=== PATIENT | male | born 1930 | race Caucasian/White ===

== ENCOUNTER 2016-12-09 05:52 | Inpatient (IN) | payer MEDICARE ==
[~2016-12-09] VITALS: Ht 177.8 cm; Wt 65.7 kg
[2016-12-09] VITALS (7 sets, daily range): BP systolic 160–178; BP diastolic 77–96; PULSE 60–69; RESP 14–20; O2SAT 96–98
[~2016-12-09 05:52] MED LIST: AMLO5TAB2 PO; ASPI-973 PO; DOXY100T2 PO; ROSU5TAB PO
--- NOTE | 2016-12-09 07:16 | ED.REPORT ---
HPI-Trauma Minor / Fall Date of Service Dec 09, 2016 ED Provider: Dr. Mahamed Watters MD An 85 year old male with a history of daily alcohol use, VT, A-fib, Broca's aphasia and CVA presents to the ED via EMS following a GLF that occurred just prior to arrival. states that he began to experience worsening weakness at 0100 this morning. Last known normal was yesterday morning. He states that his "legs did not work" and he fell over while attempting to use the bathroom. Patient reports feeling weak prior to the incident. He denies any blurry vision , slurred speech, extremity weakness, dysphagia, back pain, neck pain, head injury, vomiting or LOC. Patient was able to ambulate normally last night and believe that he is more unsteady than his typical baseline upon initial examination. He denies any EtOH use this morning and his last drink was last night. He typically takes 1 aspirin per day but did not take one this morning. Pt is a difficult historian. Nursing Notes Stated Complaint: GROUND LEVEL FALL Chief Complaint: General Complaint Nursing Notes Reviewed: Yes Allergies: Coded Allergies: Opioids - Morphine Analogues (Unverified Allergy, Unknown, 12/09/16) Uncoded Allergies: Narcotics (Allergy, Intermediate, 12/18/15) Falls asleep Scheduled Amlodipine (Amlodipine) 5 Mg Tablet 5 MG PO DAILY Aspirin Chew (Aspirin Chew) 81 Mg Chew 81 MG PO DAILY Rosuvastatin Calcium (Crestor) 5 Mg Tablet 5 MG PO DAILY General Time Seen by MD: 07:15 Chief Complaint Fall Hx Obtained From: Patient Arrived By: Ambulance Onset Occurred: Just prior to arrival Symptom Duration: Since onset Caused by: Accidental Associated with: Denies: Headache, Loss of consciousness, Neck pain, Vomiting Pertinent Negative: Pt denies other symptoms Recent Healthcare: No recent doctor visit, No recent hospitalization Past Medical History Past Medical History History of A-fib VT Broca's aphasia Tremor Reports: Hypertension, Stroke (CVA) Past Surgical History Reports: Appendectomy Smoking History Former Smoker Social History Alcohol Use: 1-3 per day Other Social History: Good social support, , Local resident Ambulatory Status Cane Review of Systems Denies facial asymmetry Constitutional: Reports: Weakness - generalized Eyes: Denies: Blurred bilateral Musculoskeletal: Denies: Back pain, Neck pain Neurologic: Reports: Dizziness, Headache, Problem walking, Denies: Change LOC, Focal weakness, Slurred speech Complete sys rev & neg: except as marked. GI: Denies: Nausea, Vomiting Physical Exam Initial Vital Signs Vital Signs (First) Date Time Temp Pulse Resp B/P Pulse Ox O2 Delivery O2 Flow Rate FiO2 12/09/16 06:13 36.1 66 20 167/89 97 Room Air Initial VS: Reviewed Extremities: Vascular intact, Neuro intact, No swelling, No tenderness Skin: Warm, Dry, No cyanosis Psychiatric: Mood/affect normal, Behavior normal, Normal thought content General/Constitutional: Awake, Alert, No acute distress Neck: Atraumatic, Supple Head / Eyes: Atraumatic, Normocephalic Respiratory / Chest: Atraumatic, Breath sounds NL, Breath sounds = bilat, No respiratory distress Cardiovascular: Heart rate NL, Regular rhythm, Heart sounds NL, No murmurs Abdomen: Atraumatic, Soft, Non-tender Neurologic: Oriented X3, Speech NL, No sensory deficits Focal Weakness: Positive: Lower extremity L, Pronator drift L (Left lower extremity pronator drift ) Cerebellar Dysfunction: Positive: Heel-garcia abnl (LLE dysmetria ), Negative: Finger-nose abnl (Dysmetria ) Interpretation & Diagnostics Lab Results Interpretation Result Diagram: 12/09/16 0915 12/09/16 0915 Test 12/09/16 08:30 12/09/16 09:15 12/09/16 09:57 Urine Color Straw (YELLOW) Urine Appearance Clear (CLEAR,HAZY) Urine pH 6.5 (5.0-8.0) Urine Specific [place] 1.008 (1.003-1.035) Urine Protein Negativemg/dL (NEG,TRACE) Urine Glucose (UA) Negativemg/dL (NEGATIVE) Urine Ketones Negativemg/dL (NEGATIVE) Urine Occult Blood Trace (NEGATIVE) Urine Nitrite Negative (NEGATIVE) Urine Bilirubin Negative (NEGATIVE) Urine Urobilinogen Normalmg/dL (NORMAL) Urine Leukocyte Esterase Negative (NEGATIVE) Urine RBC 0-2/hpf (0-2) Urine WBC 0-5/hpf (0-5) Urine Epithelial Cells Few/hpf (NONE-MOD) Urine Crystals None seen (NONE SEEN) Urine Bacteria None/hpf (NONE-FEW) Urine Hyaline Casts None/lpf (NONE) Urine Granular Casts None seen (NONE SEEN) Urine Waxy Casts None seen (NONE SEEN) Urine Red Blood Cell Casts None seen (NONE SEEN) Urine White Blood Cell Casts None seen (NONE SEEN) Urine Mucus None seen (None Seen) Urine Trichomonas None seen (NONE SEEN) Urine Yeast None (NONE SEEN) Urinalysis Comment None Urine Culture Reflexed Not indicated White Blood Count 6.4th/mm3 (3.8-10.1) Red Blood Count 4.18mil/mm3 (4.40-5.80) Hemoglobin 12.9g/dL (13.8-17.2) Hematocrit 38.6% (41.0-50.0) Mean Corpuscular Volume 92.3fL (81-100) Mean Corpuscular Hemoglobin 30.9pg (27.0-35.0) Mean Corpuscular Hemoglobin Concent 33.4% (32.0-37.0) Red Cell Distribution Width 12.5% (12.3-15.4) Platelet Count 176bil/L (150-400) Neutrophils (%) (Auto) 59.8% (40-74) Lymphocytes (%) (Auto) 28.3% (14-46) Monocytes (%) (Auto) 10.9% (4-12) Eosinophils (%) (Auto) 0.5% (0-5) Basophils (%) (Auto) 0.3% (0-3) Prothrombin Time 10.6sec (8.1-12.5) Prothromb Time International Ratio 0.99ratio Sodium Level 141mEq/L (134-144) Potassium Level 4.1mEq/L (3.5-5.2) Chloride Level 105mEq/L (97-108) Carbon Dioxide Level 21mmol/L (18-29) Blood Urea Nitrogen 17mg/dL (8-27) Creatinine 0.86mg/dL (0.76-1.27) Estimat Glomerular Filtration Rate 90mL/min (>59) Glucose Level 133mg/dL (60-99) Calcium Level 9.3mg/dL (8.5-10.1) Total Bilirubin 0.3mg/dL (0.0-1.2) Aspartate Amino Transf (AST/SGOT) 18U/L (0-50) Alanine Aminotransferase (ALT/SGPT) 12U/L (0-44) Alkaline Phosphatase 75U/L (25-160) Troponin T 0.010ug/L (0.0-0.011) Total Protein 7.0g/dL (6.4-8.4) Albumin 3.9g/dL (3.4-5.0) Alcohols < 10mg/dL (0-10) Hold Iraheta Top Tube Received (Received) ECG Interpretation ECG Interpretation: A-fib Rate [address] changes Time: 08:28 Interpreted by: ED physician CT Head Interpretation IMPRESSION: 1. No acute intracranial abnormalities. 2. Old lacunar infarct involving the anterior limb of the left internal capsule. 3. Cerebral volume loss and chronic microvascular ischemic changes. 4.. Complete opacification of the left maxillary sinus and possible mass occupying the left maxillary sinus and nasal passage. Recommend ENT consultation. Dictated by: Zachary Ferrer M.D. on 12/09/2016 at 8:37 Study: Head CT no contrast Interpretation / Wet Read by: Interpret - Radiologist Re-Eval/Medical Decision Med Decision/Clinical Course 86-year-old male history of CVA, VT on daily aspirin presenting with left-sided weakness that O1 100 this morning. Last known normal was yesterday. Well out of TPA window. He has left upper 70 and left lower extremity dysmetria. He has left-sided neglect. Per this is new. Patient will be admitted for stroke workup. Aspirin was given. Re-Evaluation/Progress #1: Time of Eval: 10:53 Re-Evaluation/Progress Note: He is informed of his results that indicate stroke. Patient is given the recommendation to admit for stroke workup and he declines. The patient is informed of the risks of a stroke up to and still insists on discharge. He agrees to meet with PT and the HANDLE ATTACHER prior to discahrge AMA. Patient has at home PT currently. Re-Evaluation/Progress #2: Time of Eval: 12:16 Patient Status: Condition improved Re-Evaluation/Progress Note: Spoke with the pt's who convinced the pt to accept admission to the hospital. Patient understands and agrees with the plan to admit. Consultation : Referral / Consult Name: Juan Antonio Green MD Consulted With: Hospitalist Call Returned at: 12:50 Seo Executive: Will see patient, Agrees with eval, Agrees with plan, Accepts admit Counseled Regarding: Diagnosis, Lab results, Need for follow-up, When/why to return to ED Discharge & Departure Impression: Primary Impression: CVA (cerebral vascular accident) CVA mechanism: unspecified Qualified Code: I63.9 - Cerebral infarction, unspecified Disposition: ADMITTED TO HOSPITAL Discharge Condition All VS Reviewed: Yes Condition: Stable Referrals: Husam Guajardo PA-C (PCP) [facility] Attestation Portions of this note were transcribed by Jasen Figueroa. I, Dr. Watters personally performed the history, physical exam and medical decision-making; I reviewed and confirmed the accuracy of the information in the transcribed note. Signed by: Randall Hunt, 12/09/16 6713. copies to: Husam Guajardo PA-C, Ben M MD Dec 09, 2016 07:15 JASEN FIGUEROA Dec 09, 2016 07:26
[2016-12-09] MEDS ORDERED: ASPI81TA3 PO (07:58)
--- NOTE | 2016-12-09 08:47 | DRSVH ---
PROCEDURE: CT BRAIN WITHOUT CONTRAST ([id number]) INDICATIONS: LLE weakness r/o cva TECHNIQUE: Noncontrast 4.5 mm thick angled axial sections acquired from the foramen magnum to the vertex, with c oronal reformats. COMPARISON: [facility], CT, CT BRAIN WO CON, 12/20/2015, 11:16. FINDINGS: Image quality: Excellent. CSF spaces: Basal cisterns are patent. No extra-axial fluid collections. The ventricles are symmet kylie in size and shape. Brain: There is old lacunar infarct in the anterior limb of the left internal capsule. No intracrani al bleeds or masses. There is mild cerebral volume loss for age, with resultant ventricular and sulc al prominence. There are mild periventricular and deep white matter chronic small vessel ischemic ch anges. There is intracranial internal carotid artery atherosclerosis. Skull and face: Calvarium and visualized facial bones appear intact, without suspicious lesions. Sinuses: Complete opacification of the right maxillary sinus. There is probable mass involving the le ft maxillary sinus and left nasal passage. Overall, the appearance is unchanged from 12/20/2059. The m astoids are clear. IMPRESSION: 1. No acute intracranial abnormalities. 2. Old lacunar infarct involving the anterior limb of the left internal capsule. 3. Cerebral volume loss and chronic microvascular ischemic changes. 4.. Complete opacification of the left maxillary sinus and possible mass occupying the left maxillary sinus and nasal passage. Recommend ENT consultation. Dictated by: Zachary Ferrer M.D. on 12/09/2016 at 8:37 Approved by: Zachary Ferrer M.D. on 12/09/2016 at 8:45
[2016-12-09 08:52] LABS: APPEARANCE,URINE CLEAR (CLEAR,HAZY); COLOR,URINE STRAW (YELLOW); PH,URINE 6.5 (5.0-8.0)
[2016-12-09 08:53] LABS: OCCULT BLOOD,URINE TRACE (NEGATIVE); UROBILINOGEN,URINE NORMAL (NORMAL)
[2016-12-09 09:49] LABS: BASOPHILS % (AUTO) 0.3 % (0-3); EOSINOPHILS % (AUTO) 0.5 % (0-5); MONOCYTES % (AUTO) 10.9 % (4-12); Mean Corpuscular Hemoglobin 30.9 pg (27.0-35.0); Mean Corpuscular Volume 92.3 fL (81-100); NEUTROPHILS % (AUTO) 59.8 % (40-74); Platelet Count 176 bil/L (150-400)
[2016-12-09 10:05] LABS: INR 0.99 ratio
--- NOTE | 2016-12-09 12:47 | NUR ---
Evaluation completed. Please go to "Notes" then click on "Assessments and Notes" (bottom left corner of screen). Then select appropriate discipline tab on top of screen.
[2016-12-09] MEDS ORDERED: Ondansetron 2 mg/mL 2 mL Inj IVPUSH PRN ×2 (12:55→14:00)
[2016-12-09] MEDS ORDERED: Alum-Mag Hydrox-Simeth 30 mL Suspension PO PRN ×2 (12:55→14:00)
--- NOTE | 2016-12-09 13:19 | NUR ---
Evaluation completed. Please go to "Notes" then click on "Assessments and Notes" (bottom left corner of screen). Then select appropriate discipline tab on top of screen.
[2016-12-09] MEDS ORDERED: Polyethylene Glycol (PEG) 17 Gm Powder PO PRN (14:00)
--- NOTE | 2016-12-09 14:25 | NUR ---
Admit [facility] from ED to room 3002 A&O pt arrived to unit at 1402 via stretcher. VSS. Denies pain. IV patent. Tele on, box 53. CASTRO and LLE side weakness noted. No facial/tongue asymmetry appreciated. Pt oriented to room and facility. Denies having questions. Admit complete. States to live at home with on [address]. Is retired from [employer]. Bed in low position, upper rails up, personal alarm set, will continue to monitor.
[2016-12-09] MEDS: 0.9% Sodium Chloride 1,000 ML IV SCH (14:34)
--- NOTE | 2016-12-09 16:48 | DRSVH ---
PROCEDURE: MRI STROKE PROTOCOL ([id number]) Pre- and post-contrast brain MRI, non-contrast brain MR angiogram, pre- and postcontrast neck MR ome ogram INDICATIONS: LEFT SIDE WEAKNESS,CONFUSION TECHNIQUE: Brain: Noncontrast axial T1 spin echo, axial T2 fast spin echo, sagittal and axial FLAIR, coronal T2 fast spin echo, axial gradient echo, axial diffusion and ADC through the brain. After the administr ation of contrast, axial 3D VIBE of the cranial vasculature and brain. Brain MRA: Non-contrast 3-D time of flight MR angiogram, with multiple zedujmw-rpwrvsixr-drgtjmybvk (MIP) reformats performed. Neck MRA: Axial and sagittal TruFISP through the neck. Coronal dynamic MR angiogram during administ ration of contrast in the arterial and venous phases, with 3-dimenstional klgmavq-[id number]-usmtcjcgw n (MIP) reformats constructed from subtraction images. COMPARISON: [facility], CT, CT BRAIN WO CON, 12/20/2015, 11:16. [facility], CT, BRAIN W/O CONTRAST, 11/27/2008, 17:46. [facility], CT, CT BRAIN WO CON, 12/09/2016, 8: 17. FINDINGS: Image quality: Partially degraded by motion artifact. BRAIN: CSF spaces: Ventricles are normal in size and shape. Basal cisterns are patent. No extra-axial flu id collections. Brain: There is diffuse bilateral subdural low T1 and high FLAIR signal intensity overlying the front al and parietal lobes predominantly, measuring roughly 8 mm in thickness overlying the right frontal lobe, and 6 mm in thickness overlying the left frontal lobe. These regions demonstrate avid post cont rast-enhancement following intravenous contrast administration. Luque-white matter interface is normal . Diffusion weighted imaging demonstrates a 46 mm diameter region of elevated signal intensity within the right medial temporal lobe. There are a few small adjacent regions of elevated diffusion signal within the right posterior basal ganglia and right temporal-occipital lobe junction. These regions de monstrate moderate FLAIR signal elevation, and are consistent with late subacute infarcts. Brainstem appears normal. Normal intravascular flow voids are present. Skull and face: Calvarial marrow signal is normal. Orbits appear normal. 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 BRAIN MR ANGIOGRAM: Anterior circulation: Intracranial internal carotid arteries are normal in size and enhancement. Th e flow within the paired anterior cerebral arteries is normal and symmetric. The flow within the mid dle cerebral arteries is normal and symmetric. The anterior communicating artery is seen. No stenos es, occlusions, or aneurysms. Posterior circulation: The visualized portions of the vertebral arteries demonstrate normal caliber, and join to form a normal appearing basilar artery. The flow within the posterior cerebral arteries is normal and symmetric. No stenoses, occlusions, or aneurysms. NECK MR ANGIOGRAM: Carotids: Great vessels demonstrate a conventional anatomy as they arise from the aortic arch. The origins of the common carotid arteries appear patent. The calibers and courses of both common caroti d arteries are normal. The bifurcation regions appear normal bilaterally. The internal carotid noni kim demonstrate normal course and caliber. Posterior circulation: Left vertebral artery origin not well-seen. Mild stenosis of the right vertebr al artery origin. More superior portions of both vertebral arteries demonstrate normal course and hang iber, and join to form a normal appearing basilar artery. Miscellaneous: Subclavian arteries appear patent. Pre-contrast images through the neck show no soft tissue abnormalities. IMPRESSION: BRAIN MRI: 1. Subacute infarcts within the right temporal lobe and basal ganglia. 2. Bilateral subdural abnormalities as described above, likely representing chronic hematomas. Howeve r, given the avid post contrast-enhancement, intracranial hypotension or underlying meningeal carcino matosis may also be present. 3. 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 BRAIN MR ANGIOGRAM: Negative cerebral MR angiography. NECK MR ANGIOGRAM: 1. No internal carotid artery stenosis bilaterally. 2. Patent right vertebral artery. Suboptimally visualized left vertebral artery origin, which is othe rwise patent. The estimate of stenosis included in the report of the imaging study was calculated using the NASCET method Findings were discussed with Dr. Green on 12.09.16 at 1640 hrs. PST. Dictated by: Deonte Jordan M.D. on 12/09/2016 at 15:31 Approved by: Deonte Jordan M.D. on 12/09/2016 at 15:46
--- NOTE | 2016-12-09 17:42 | PCM.HPMED ---
Subjective Date of Service Dec 09, 2016 Primary Provider: Admitting Physician: Juan Antonio Green MD Primary Care Physician: Husam Guajardo PA-C Attending Physician: Juan Antonio Green MD Admit Status: From the Emergency Department, Full Admit, Admit to Green Team Chief Complaint: GLF/1 day Worsened left sided weakness/1 day History of Present Illness: 86-year-old gentleman with past medical history of CVA with residual left-sided weakness, history of Broca's aphasia, history of atrial fibrillation not on AC, history of nasal polyp status post resection was brought in due to acute worsening of left-sided weakness and ground of 1 day. Patient states this afternoon at 1pm he tried to get out of bed but his left leg was much weaker than baseline and he fell to ground. He describes it as his leg gave away and could not lift it. did not hit his head. He also feels his left arm is weaker from baseline. Takes aspirin and statin. At baseline reportedly subtle left-sided weakness and able to ambulate independently ED course: in Afib rate controlled,BP 167/89, exam remarkable for mild left- sided weakness, total left aidan-neglect, left upper extremity dysmetria and dysdiadochokinesia on finger to nose ,power 4+/5 on LUE and LLE,5/5 on right tpa not given as out of window with last known well last night, CT brain :Old lacunar infarct involving the anterior limb of the left internal capsule. Complete opacification of the left maxillary sinus and possible mass occupying the left maxillary sinus and nasal passage admission requested for CVA Review of Systems: A comprehensive review of systems performed, pertinent positives and negatives included in history of present illness Allergies Coded Allergies: Opioids - Morphine Analogues (Unverified Allergy, Unknown, 12/09/16) Uncoded Allergies: Narcotics (Allergy, Intermediate, 12/18/15) Falls asleep Home Medications Amlodipine (Amlodipine) 5 Mg Tablet 5 MG PO DAILY Aspirin Chew (Aspirin Chew) 81 Mg Chew 81 MG PO DAILY Rosuvastatin Calcium (Crestor) 5 Mg Tablet 5 MG PO DAILY PMH History of A-fib not on AC reported history DE Broca's aphasia Tremor Reports: Hypertension, Stroke (CVA) nasal polyp Surgical History Appendectomy Nasal polypectomy per prior admission notes Family History Reviewed and unremarkable Social History Hx Alcohol Use: Yes (DAILY ) Alcoholic Drinks Per Day: glass of wine Hx Substance Use: No Hx Tobacco Use: Yes (60+ pack years) Smoking Status: Former Smoker Exam Vital Signs Vital Sign - Last Date Time Temp Pulse Resp B/P Pulse Ox O2 Delivery O2 Flow Rate FiO2 12/09/16 14:22 62 12/09/16 14:15 36.8 16 176/89 98 Room Air Exam Gen. patient is lying comfortably in hospital bed HEENT: Head is normocephalic atraumatic, Pupils equal and reactive, extraocular movements intact, Lungs clear to auscultation bilaterally Heart regular rate and rhythm without murmurs gallops or rubs Abdomen soft nontender without hepatosplenomegaly Extremities pulses are present dorsalis pedis posterior tibialis and radial. tSkin is warm and dry there are no rashes, Psych alert and oriented to person place and time Neuro left-sided weakness, total left aidan-neglect, left upper extremity dysmetria and dysdiadochokinesia on finger to nose ,power 4+/5 on LUE and LLE,5/ 5 on right . No sensory deficit Lymph: There is no lymphadenopathy appreciated in the cervical supra infraclavicular regions : no omalley Lab and Diagnostics Result Diagram: 12/09/1615 12/09/16 0915 X-Rays, CTs and MRIs PROCEDURE: CT BRAIN WITHOUT CONTRAST ([id number]) INDICATIONS: LLE weakness r/o cva IMPRESSION: 1. No acute intracranial abnormalities. 2. Old lacunar infarct involving the anterior limb of the left internal capsule. 3. Cerebral volume loss and chronic microvascular ischemic changes. 4.. Complete opacification of the left maxillary sinus and possible mass occupying the left maxillary sinus and nasal passage. Recommend ENT consultation. Dictated by: Zachary Ferrer M.D. on 12/09/2016 at 8:37 PROCEDURE: MRI STROKE PROTOCOL ([id number]) Pre- and post-contrast brain MRI, non-contrast brain MR angiogram, pre- and postcontrast neck MR angiogram INDICATIONS: LEFT SIDE WEAKNESS,CONFUSION TECHNIQUE: Brain: Noncontrast axial T1 spin echo, axial T2 fast spin echo, sagittal and axial FLAIR, coronal T2 fast spin echo, axial gradient echo, axial diffusion and ADC through the brain. After the administration of contrast, axial 3D VIBE of the cranial vasculature and brain. Brain MRA: Non-contrast 3-D time of flight MR angiogram, with multiple maximum- intensity-projection (MIP) reformats performed. Neck MRA: Axial and sagittal TruFISP through the neck. Coronal dynamic MR angiogram during administration of contrast in the arterial and venous phases, with 3-dimenstional rwsavja-fxwimkuzb-etvtmjfene (MIP) reformats constructed from subtraction images. COMPARISON: [facility], CT, CT BRAIN WO CON, 12/20/2015, 11:16. [facility], CT, BRAIN W/O CONTRAST, 11/27/2008, 17:46. [facility], CT, CT BRAIN WO CON, 12/09/2016, 8:17. FINDINGS: Image quality: Partially degraded by motion artifact. BRAIN: CSF spaces: Ventricles are normal in size and shape. Basal cisterns are patent. No extra-axial fluid collections. Brain: There is diffuse bilateral subdural low T1 and high FLAIR signal intensity overlying the frontal and parietal lobes predominantly, measuring roughly 8 mm in thickness overlying the right frontal lobe, and 6 mm in thickness overlying the left frontal lobe. These regions demonstrate avid post contrast-enhancement following intravenous contrast administration. Luque-white matter interface is normal. Diffusion weighted imaging demonstrates a 46 mm diameter region of elevated signal intensity within the right medial temporal lobe. There are a few small adjacent regions of elevated diffusion signal within the right posterior basal ganglia and right temporal-occipital lobe junction. These regions demonstrate moderate FLAIR signal elevation, and are consistent with late subacute infarcts. Brainstem appears normal. Normal intravascular flow voids are present. Skull and face: Calvarial marrow signal is normal. Orbits appear normal. Sinuses: As before, there is a left nasal cavity and left maxillary sinus mass, which demonstrates heterogeneous enhancement following intravenous contrast administration. BRAIN MR ANGIOGRAM: Anterior circulation: Intracranial internal carotid arteries are normal in size and enhancement. The flow within the paired anterior cerebral arteries is normal and symmetric. The flow within the middle cerebral arteries is normal and symmetric. The anterior communicating artery is seen. No stenoses, occlusions, or aneurysms. Posterior circulation: The visualized portions of the vertebral arteries demonstrate normal caliber, and join to form a normal appearing basilar artery. The flow within the posterior cerebral arteries is normal and symmetric. No stenoses, occlusions, or aneurysms. NECK MR ANGIOGRAM: Carotids: Great vessels demonstrate a conventional anatomy as they arise from the aortic arch. The origins of the common carotid arteries appear patent. The calibers and courses of both common carotid arteries are normal. The bifurcation regions appear normal bilaterally. The internal carotid arteries demonstrate normal course and caliber. Posterior circulation: Left vertebral artery origin not well-seen. Mild stenosis of the right vertebral artery origin. More superior portions of both vertebral arteries demonstrate normal course and caliber, and join to form a normal appearing basilar artery. Miscellaneous: Subclavian arteries appear patent. Pre-contrast images through the neck show no soft tissue abnormalities. IMPRESSION: BRAIN MRI: 1. Subacute infarcts within the right temporal lobe and basal ganglia. 2. Bilateral subdural abnormalities as described above, likely representing chronic hematomas. However, given the avid post contrast-enhancement, intracranial hypotension or underlying meningeal carcinomatosis may also be present. 3. 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 BRAIN MR ANGIOGRAM: Negative cerebral MR angiography. NECK MR ANGIOGRAM: 1. No internal carotid artery stenosis bilaterally. 2. Patent right vertebral artery. Suboptimally visualized left vertebral artery origin, which is otherwise patent. The estimate of stenosis included in the report of the imaging study was calculated using the NASCET method Findings were discussed with Dr. Green on 12.09.16 at 1640 hrs. PST. Dictated by: Deonte Jordan M.D. on 12/09/2016 at 15:31 12-lead ECG A. fib rate controlled Assessment & Plan 86-year-old gentleman with past medical history of CVA with residual left-sided weakness, history of Broca's aphasia, history of atrial fibrillation not on AC, history of nasal polyp ? t status post resection was brought in due to acute worsening of left-sided weakness and ground of 1 day. # Acute CVA -Likely embolic given A. fib not on AC and multiple infarct sites -MRI Subacute infarcts within the right temporal lobe and basal ganglia, Bilateral subdural abnormalities likely representing chronic hematomas vs intracranial hypotension vs underlying meningeal carcinomatosis -Patient's symptoms are explained by the stroke MRI findings. Subdural abnormality probably incidental finding and not related to his current symptoms -ASA given in ED, continue aspirin, benefit outweighs the risk. 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 We have to quantify his office and make an appointment before discharge -May consider LP and cytology but biopsy of nasal mass is more accessible # Afib not on AC -rate controlled -AC may be considered once SDH and brain mets ruled out # HTN -Continue home amlodipine Patient admitted under inpatient status with expected length of stay > 2 midnights for severity of present symptoms, complexities of treatment plan and risk for adverse events full code per patient VTE Mechanical Devices: Intermittant Pneumatic CD copies to: Husam Guajardo PA-C, Melaku MD Dec 09, 2016 17:42
--- NOTE | 2016-12-09 18:05 | NUR ---
Ambulation/Hemispatial neglect/Afib pauses Pt up with RN as 1PA using FWW. Pt sat up in chair for dinner. states to be feeling stronger. Is aware of L sided weakness. L side hemispatial neglect noted. Dinner tray needs to be rotated around and when speaking with pt, one must stand to the R side. Pt noted to have couple second Afib pauses on tele-MD notified. Will continue to monitor. Bed in low position, 3 rails up, alarm on, will continue to monitor.
--- NOTE | 2016-12-09 19:27 | NUR ---
CVA teaching CVA teaching provided. Pt denies having questions. States had one last year and is aware of warning signs/symptoms. Pamphlet left with pt.
[2016-12-10] VITALS (9 sets, daily range): BP systolic 160–193; BP diastolic 79–94; PULSE 56–72; RESP 16–18; O2SAT 96–98
[2016-12-10 06:14] LABS: BASOPHILS % (AUTO) 0.3 % (0-3); EOSINOPHILS % (AUTO) 1.6 % (0-5); MONOCYTES % (AUTO) 11.6 % (4-12); Mean Corpuscular Hemoglobin 30.9 pg (27.0-35.0); Mean Corpuscular Volume 92.6 fL (81-100); NEUTROPHILS % (AUTO) 50.4 % (40-74); Platelet Count 180 bil/L (150-400)
[2016-12-10 06:28] LABS: Magnesium 1.9 mg/dL (1.6-2.6)
[2016-12-10] MEDS: 0.9% Sodium Chloride 1,000 ML IV SCH (07:43)
--- NOTE | 2016-12-10 15:19 | PCM.PNMED ---
Subjective Date of Service Dec 10, 2016 Subjective Denies any new issues/complaints Exam Vital Signs Vital Sign - Last Date Time Temp Pulse Resp B/P Pulse Ox O2 Delivery O2 Flow Rate FiO2 12/10/16 13:47 36.6 65 18 164/79 97 Room Air Intake and Output 12/09/16 12/09/16 12/10/16 Cumulative From/Thru 15:00 23:00 07:00 12/09/16 06:13 - 12/10/16 05:51 Intake Total 421 ml 300 ml 721 ml Output Total 600 ml 520 ml 1450 ml 2570 ml Balance -600 ml -99 ml -1150 ml -1849 ml Intake Oral 300 ml 300 ml 600 ml IV Total 121 ml 121 ml Output Urine Total 600 ml 520 ml 1450 ml 2570 ml # Voids 1 1 # Bowel Movements 1 1 General: Alert, Cooperative, No Acute Distress Head: Normal Eyes: PERRLA, EOMI, Scleral Anicteric Nose: Mucous Membr Moist/[place] Mouth: Mucous Membr Moist/[place] Neck: Supple Chest & Lungs: Chest Wall Normal, Clear to auscultation & percussion Cardiovascular: Regular Rate/Rhythm Pulses: NL carotid, radial, femoral, DP, PT Abdomen: Non-tender, Non-distended, Normoactive bowel tones, Soft Extremities: No cyanosis/clubbing/edma bilat Neurological: Cranial Nerves 2-12 Intact (grossly) IVs and Medications Medications Reviewed: Medications were reviewed in detail Lab and Diagnostics Result Diagram: 12/10/16 0510 12/10/16 0510 X-Rays, CTs and MRIs PROCEDURE: CT BRAIN WITHOUT CONTRAST ([id number]) INDICATIONS: LLE weakness r/o cva IMPRESSION: 1. No acute intracranial abnormalities. 2. Old lacunar infarct involving the anterior limb of the left internal capsule. 3. Cerebral volume loss and chronic microvascular ischemic changes. 4.. Complete opacification of the left maxillary sinus and possible mass occupying the left maxillary sinus and nasal passage. Recommend ENT consultation. Dictated by: Zachary Ferrer M.D. on 12/09/2016 at 8:37 PROCEDURE: MRI STROKE PROTOCOL ([id number]) Pre- and post-contrast brain MRI, non-contrast brain MR angiogram, pre- and postcontrast neck MR angiogram INDICATIONS: LEFT SIDE WEAKNESS,CONFUSION TECHNIQUE: Brain: Noncontrast axial T1 spin echo, axial T2 fast spin echo, sagittal and axial FLAIR, coronal T2 fast spin echo, axial gradient echo, axial diffusion and ADC through the brain. After the administration of contrast, axial 3D VIBE of the cranial vasculature and brain. Brain MRA: Non-contrast 3-D time of flight MR angiogram, with multiple maximum- intensity-projection (MIP) reformats performed. Neck MRA: Axial and sagittal TruFISP through the neck. Coronal dynamic MR angiogram during administration of contrast in the arterial and venous phases, with 3-dimenstional qaeovqy-wyoanzkfl-ycoafwikdw (MIP) reformats constructed from subtraction images. COMPARISON: [facility], CT, CT BRAIN WO CON, 12/20/2015, 11:16. [facility], CT, BRAIN W/O CONTRAST, 11/27/2008, 17:46. [facility], CT, CT BRAIN WO CON, 12/09/2016, 8:17. FINDINGS: Image quality: Partially degraded by motion artifact. BRAIN: CSF spaces: Ventricles are normal in size and shape. Basal cisterns are patent. No extra-axial fluid collections. Brain: There is diffuse bilateral subdural low T1 and high FLAIR signal intensity overlying the frontal and parietal lobes predominantly, measuring roughly 8 mm in thickness overlying the right frontal lobe, and 6 mm in thickness overlying the left frontal lobe. These regions demonstrate avid post contrast-enhancement following intravenous contrast administration. Luque-white matter interface is normal. Diffusion weighted imaging demonstrates a 46 mm diameter region of elevated signal intensity within the right medial temporal lobe. There are a few small adjacent regions of elevated diffusion signal within the right posterior basal ganglia and right temporal-occipital lobe junction. These regions demonstrate moderate FLAIR signal elevation, and are consistent with late subacute infarcts. Brainstem appears normal. Normal intravascular flow voids are present. Skull and face: Calvarial marrow signal is normal. Orbits appear normal. Sinuses: As before, there is a left nasal cavity and left maxillary sinus mass, which demonstrates heterogeneous enhancement following intravenous contrast administration. BRAIN MR ANGIOGRAM: Anterior circulation: Intracranial internal carotid arteries are normal in size and enhancement. The flow within the paired anterior cerebral arteries is normal and symmetric. The flow within the middle cerebral arteries is normal and symmetric. The anterior communicating artery is seen. No stenoses, occlusions, or aneurysms. Posterior circulation: The visualized portions of the vertebral arteries demonstrate normal caliber, and join to form a normal appearing basilar artery. The flow within the posterior cerebral arteries is normal and symmetric. No stenoses, occlusions, or aneurysms. NECK MR ANGIOGRAM: Carotids: Great vessels demonstrate a conventional anatomy as they arise from the aortic arch. The origins of the common carotid arteries appear patent. The calibers and courses of both common carotid arteries are normal. The bifurcation regions appear normal bilaterally. The internal carotid arteries demonstrate normal course and caliber. Posterior circulation: Left vertebral artery origin not well-seen. Mild stenosis of the right vertebral artery origin. More superior portions of both vertebral arteries demonstrate normal course and caliber, and join to form a normal appearing basilar artery. Miscellaneous: Subclavian arteries appear patent. Pre-contrast images through the neck show no soft tissue abnormalities. IMPRESSION: BRAIN MRI: 1. Subacute infarcts within the right temporal lobe and basal ganglia. 2. Bilateral subdural abnormalities as described above, likely representing chronic hematomas. However, given the avid post contrast-enhancement, intracranial hypotension or underlying meningeal carcinomatosis may also be present. 3. 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 BRAIN MR ANGIOGRAM: Negative cerebral MR angiography. NECK MR ANGIOGRAM: 1. No internal carotid artery stenosis bilaterally. 2. Patent right vertebral artery. Suboptimally visualized left vertebral artery origin, which is otherwise patent. The estimate of stenosis included in the report of the imaging study was calculated using the NASCET method Findings were discussed with Dr. Green on 12.09.16 at 1640 hrs. PST. Dictated by: Deonte Jordan M.D. on 12/09/2016 at 15:31 12-lead ECG A. fib rate controlled Assessment & Plan 86-year-old gentleman with past medical history of CVA with residual left-sided weakness, history of Broca's aphasia, history of atrial fibrillation not on AC, history of nasal polyp ? t status post resection was brought in due to acute worsening of left-sided weakness # Acute vs subacute ischemia stroke, present on admission -Likely embolic given A. fib not on AC and multiple infarct sites -MRI Subacute infarcts within the right temporal lobe and basal ganglia, Bilateral subdural abnormalities likely representing chronic hematomas vs intracranial hypotension vs underlying meningeal carcinomatosis -Reviewed MRI with [facility]/stroke consult on 12/10/16. Per recommendation will continue with low dose ASA for now and repeat CT brain in AM to ensure hematoma stable. 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
--- NOTE | 2016-12-10 15:57 | NUR ---
Social Work-initial assessment: Data:See initial assessment. Pt is a 86 y/o male who was admitted on 12/09/16 for CVA per H&P. Pt's insurance is [employer] and PCP is LEE Crystal. EMR Reviewed. Pt's readmission score is 0. SW met with pt to discuss discharge planning, SW role explained. Pt is alert and oriented x3. Pt resides at home with his on [place] where he remains independent with ADLs. Pt uses a cane or fww at baseline and does drive. Pt has no HH or SNF history. 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 SW discussed DPOA/ advanced directive, pt confirms he has not completed this, SW encouraged a copy to be brought in. PT has seen pt and recommended home with HH services. SW to await MD order for HH services. SW to follow up with pt tomorrow to discuss. Pt confirms his family will provide transport home. SW will continue to follow. Assessment:Pt who is independent at baseline. Plan:Pt to discharge home when medically stable via POV. SW to await MD order for HH services. SW will continue to follow. RICKIE Carbajal Addendum: 12/10/16 at 1602 by YARITZA BROWN Amended: Links added.
[2016-12-11] MEDS: 0.9% Sodium Chloride 1,000 ML IV SCH (00:16)
[2016-12-11 04:16] VITALS: BP 170/85; PULSE 61; RESP 16; O2SAT 93
[2016-12-11 09:10] VITALS: BP 156/74; PULSE 52; RESP 16; O2SAT 97
--- NOTE | 2016-12-11 09:30 | DRSVH ---
PROCEDURE: CT BRAIN WITHOUT CONTRAST ([id number]) INDICATIONS: possible subdural hematoma on earlier imaging TECHNIQUE: Noncontrast 4.5 mm thick angled axial sections acquired from the foramen magnum to the vertex, with c oronal reformats. COMPARISON: , CT, CT BRAIN WO CON, 12/20/2015, 11:16. , MR, MR STROKE PROTOCOL, 12/09/2016, 15:49. , CT, CT BRAIN WO CON, 12/09/2016, 8: 17. FINDINGS: Image quality: Excellent. CSF spaces: Basal cisterns are patent. No extra-axial fluid collections. The ventricles are symmet kylie in size and shape. Brain: No intracranial masses, and the thin subacute/chronic subdural hematoma present on the right best seen during recent MR scanning 12/09/16 has not changed. Slight elevated fluid signal in the sub dural space on the left seen by that MR scan cannot be detected as a chronic subdural hematoma by the current CT scan, likely due to chronicity. There is cerebral volume loss for age, with resultant ve ntricular and sulcal prominence. There are periventricular and deep white matter chronic small vesse l ischemic changes. A previously present medial right temporal stroke shows evolution of edema, with only minimal mass effect on the right, without deviation of the midline structures. There is intrac ranial internal carotid artery atherosclerosis. Skull and face: Calvarium and visualized facial bones appear unchanged, without Identified suspicious lesions. The large mass lesion previously identified involving the left maxill leydi sinus with adjacent ostiolysis is again noted. Sinuses: Visualized sinuses and mastoids are clear. IMPRESSION: Evolution of a medial right temporal stroke, with minimal mass effect. The stroke was mo st accurately initially visualized by recent MR scanning 12/09/16. The recent MRI has identified 2 areas of subdural hematoma (present bilaterally) with only the thin c hronic right subdural hematoma faintly visualized by the current CT and the MR-documented chronic lef t subdural hematoma cannot be accurately detected by current CT scan. 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 ENT con sultation is recommended for this abnormality. Dictated by: Terence Sorensen M.D. on 12/11/2016 at 9:20 Approved by: Terence Sorensen M.D. on 12/11/2016 at 9:29
[2016-12-11 10:52] VITALS: PULSE 77
--- NOTE | 2016-12-11 11:30 | PCM.DIMED ---
Discharge Instructions Date of Service Dec 11, 2016 Dates of Hospitalization Dec 09, 2016 at 13:10 Discharge Diagnosis Discharge Diagnosis # Acute vs subacute ischemic stroke within the right temporal lobe and basal ganglia, present on admission -Likely embolic given atrial fibrillation (A-fib) # MRI of the brain also showing: "Bilateral subdural abnormalities likely representing chronic hematomas vs intracranial hypotension vs underlying meningeal carcinomatosis" # Left nasal cavity and maxillary sinus mass # Chronic A-fib not on anticoagulation due to prior history of gastrointestinal bleed # Hypertension Diet Discharge Diet: Low fat, Low Sodium, Heart Healthy Activity Discharge Activity: Home Health Phyical Therapy Call your provider Call your provider for: Fever or Chills, Shortness of breath, Bleeding, Weakness (unilateral) Patient Instructions Patient Instructions Seek immediate medical attention if any new or worsening signs or symptoms occur. Follow-up plan 1. Followup with primary care provider within one week for further consideration of outpatient neurology referral as well as possible further anticoagulation for the history of atrial fibrillation 2. Followup with [facility] (Dr. Keith Hernandez) on Saturday12/19/16 at 10:55 AM Address: [address] [place] [address] Follow-up Provider: Keith Hernandez MD Follow-up with PCP in: Other (Saturday12/19/16 at 10:55 AM) Provider: Husam Guajardo PA-C Follow-up in: 1 week Andrae Wolff Dec 11, 2016 11:30
--- NOTE | 2016-12-11 11:36 | NUR ---
Social Work-discharge: Data:EMR Reviewed. Pt is on day 2 of hospitalization for CVA per H&P. Pt is medically stable for discharge today. PT has cleared pt for home with HH Services. order received for HH services- RN and PT. FANI met with pt who is agreeable to HH services, Pt has no agency preference, HH choice list provided. Pt would like SW to call his . FANI placed a call to pt's Jaycee confirms she is agreeable to HH with no agency preference. FANI referred to the rotating calendar and made referral to [facility] for Rn and PT. FANI updated florinda at [facility] and she is agreeable. FANI faxed referral and orders into Florinda at [facility] Who confirms they have received them. Pt to have follow up at ENT office in [place] next week on Saturday. SW updated pt's and she will plan on providing transport home this afternoon. All updated and agreeable to plan. Assessment:Pt who would benefit from HH. Plan:Pt to discharge home today via POV. F2F and orders faxed into [facility] for RN and PT. PT to have followup at ENT office next week. Pt and updated and agreeable to plan. RICKIE Carbajal
[2016-12-11 12:40] VITALS: BP 157/90; PULSE 70; RESP 16; O2SAT 97
--- NOTE | 2016-12-11 13:24 | NUR ---
Behavior Patient combative and attempting to bite staff. Unable to hear staff due to hearing aide falling out. Continues to attempt to put IV in ear because she thinks that IV is the hearing aide. Call placed to daughter who states that she will come to room. Addendum: 12/11/16 at 1555 by LESLI PAPPAS RN Error. Documentation done in error. Wrong patient.
--- NOTE | 2016-12-11 15:53 | NUR ---
Discharge Pt discharged to home at 1530. Taken off unit in [place], accompanied by RN and . All pt belongings sent home with pt. Discahrge instructions given and explained. No new rx given. Care notes provided. Instructed to follow with PCP and have new appointment with ENT. Appointment made for pt with ENT in [place], but pt and did not want to drive to [place], so they stated they will arrange for an appointment with an ENT closer to their home. Pt and vocalize understanding and deny further questions.
--- NOTE | 2016-12-11 19:11 | PCM.DC.MED ---
Discharge Summary Date of Service Dec 11, 2016 Dates of Hospitalization Date of Hospital Admission Dec 09, 2016 at 13:10 Date of Discharge: Dec 11, 2016 Providers: Admitting Physician: Andrae Wolff Primary Care Physician: Husam Guajardo PA-C Attending Physician: Andrae Wolff Diagnosis at Time of Discharge Diagnosis at Time of Discharge # Acute vs subacute ischemic stroke within the right temporal lobe and basal ganglia, present on admission -Likely embolic given atrial fibrillation (A-fib) # MRI of the brain also showing: "Bilateral subdural abnormalities likely representing chronic hematomas vs intracranial hypotension vs underlying meningeal carcinomatosis" # 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 No acute intracranial abnormalities. 2. Old lacunar infarct involving the anterior limb of the left internal capsule. 3. Cerebral volume loss and chronic microvascular ischemic changes. 4.. Complete opacification of the left maxillary sinus and possible mass occupying the left maxillary sinus and nasal passage. Recommend ENT consultation. Dictated by: Zachary Ferrer M.D. on 12/09/2016 at 8:37 PROCEDURE: MRI STROKE PROTOCOL ([id number]) IMPRESSION: BRAIN MRI: 1. Subacute infarcts within the right temporal lobe and basal ganglia. 2. Bilateral subdural abnormalities as described above, likely representing chronic hematomas. However, given the avid post contrast-enhancement, intracranial hypotension or underlying meningeal carcinomatosis may also be present. 3. 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 BRAIN MR ANGIOGRAM: Negative cerebral MR angiography. NECK MR ANGIOGRAM: 1. No internal carotid artery stenosis bilaterally. 2. Patent right vertebral artery. Suboptimally visualized left vertebral artery origin, which is otherwise patent. The estimate of stenosis included in the report of the imaging study was calculated using the NASCET method Dictated by: Deonte Jordan M.D. on 12/09/2016 at 15:31 PROCEDURE: CT BRAIN WITHOUT CONTRAST ([id number]) IMPRESSION: Evolution of a medial right temporal stroke, with minimal mass effect. The stroke was most accurately initially visualized by recent MR scanning 12/09/16. The recent MRI has identified 2 areas of subdural hematoma (present bilaterally ) with only the thin chronic right subdural hematoma faintly visualized by the current CT and the MR-documented chronic left subdural hematoma cannot be accurately detected by current CT scan. 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 ENT consultation is recommended for this abnormality. Dictated by: Terence Sorensen M.D. on 12/11/2016 at 9:20 Approved by: Terence Sorensen M.D. on 12/11/2016 at 9:29 ECG 12 Lead A. fib rate controlled Brief History As noted in H&P by Dr. Green: 86-year-old gentleman with past medical history of CVA with residual left-sided weakness, history of Broca's aphasia, history of atrial fibrillation not on AC, history of nasal polyp status post resection was brought in due to acute worsening of left-sided weakness and ground of 1 day. Patient states this afternoon at 1pm he tried to get out of bed but his left leg was much weaker than baseline and he fell to ground. He describes it as his leg gave away and could not lift it. did not hit his head. He also feels his left arm is weaker from baseline. Takes aspirin and statin. At baseline reportedly subtle left-sided weakness and able to ambulate independently ED course: in Afib rate controlled,BP 167/89, exam remarkable for mild left- sided weakness, total left aidan-neglect, left upper extremity dysmetria and dysdiadochokinesia on finger to nose ,power 4+/5 on LUE and LLE,5/5 on right tpa not given as out of window with last known well last night, CT brain :Old lacunar infarct involving the anterior limb of the left internal capsule. Complete opacification of the left maxillary sinus and possible mass occupying the left maxillary sinus and nasal passage admission requested for CVA Hospital Course # Acute vs subacute ischemia stroke, present on admission -Likely embolic given A. fib not on AC and multiple infarct sites -MRI Subacute infarcts within the right temporal lobe and basal ganglia, Bilateral subdural abnormalities likely representing chronic hematomas vs intracranial hypotension vs underlying meningeal carcinomatosis -Reviewed MRI with [facility] neurology/stroke consult on 12/10/16. Per recommendation will continue with low dose ASA for now. Repeat CT brain showed likely hematoma stable. -Continue statin -Patient reports resolution of his presenting symptoms by day of discharge -Patient not on anticoagulation for Afibe due to prior history of GI bleed as well as possible underlying hematoma noted above. 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 Hernandez) on 12/11 whose impression is that given history and imaging that this is likely benign and recommended further followup as outpatient for likely biopsy in the ENT office -I did set up patient with followup with ENT at [facility] (per his request) but by time of discharge patient claims he never asked for an appointment at [facility] and his says it's too far for them to go to. I offered to setup another schedule at the [facility] E[facility] clinic for them but they just wish to leave "right now" without any further waiting and note that they will setup the appointment themselves as outpatient. -Another reason why patient not started on further anticoagulation was in anticipation of ENT biopsy in coming days as outpatient. # Chronic A-fib not on anticoagulation due to prior history of GI bleed -Rate controlled -Continue with current meds # HTN -Continue home amlodipine Exam Vital Signs (Last) Date Time Temp Pulse Resp B/P Pulse Ox O2 Delivery O2 Flow Rate FiO2 12/11/16 12:40 36.4 70 16 157/90 97 Room Air Test 12/09/16 08:30 12/09/16 09:15 12/09/16 09:57 12/10/16 05:10 Urine Color Straw (YELLOW) Urine Appearance Clear (CLEAR,HAZY) Urine pH 6.5 (5.0-8.0) Urine Specific [place] 1.008 (1.003-1.035) Urine Protein Negativemg/dL (NEG,TRACE) Urine Glucose (UA) Negativemg/dL (NEGATIVE) Urine Ketones Negativemg/dL (NEGATIVE) Urine Occult Blood Trace (NEGATIVE) Urine Nitrite Negative (NEGATIVE) Urine Bilirubin Negative (NEGATIVE) Urine Urobilinogen Normalmg/dL (NORMAL) Urine Leukocyte Esterase Negative (NEGATIVE) Urine RBC 0-2/hpf (0-2) Urine WBC 0-5/hpf (0-5) Urine Epithelial Cells Few/hpf (NONE-MOD) Urine Crystals None seen (NONE SEEN) Urine Bacteria None/hpf (NONE-FEW) Urine Hyaline Casts None/lpf (NONE) Urine Granular Casts None seen (NONE SEEN) Urine Waxy Casts None seen (NONE SEEN) Urine Red Blood Cell Casts None seen (NONE SEEN) Urine White Blood Cell Casts None seen (NONE SEEN) Urine Mucus None seen (None Seen) Urine Trichomonas None seen (NONE SEEN) Urine Yeast None (NONE SEEN) Urinalysis Comment None Urine Culture Reflexed Not indicated Prothrombin Time 10.6sec (8.1-12.5) Prothromb Time International Ratio 0.99ratio Troponin T 0.010ug/L (0.0-0.011) Alcohols < 10mg/dL (0-10) Hold Iraheta Top Tube Received (Received) White Blood Count 6.9th/mm3 (3.8-10.1) Red Blood Count 4.33mil/mm3 (4.40-5.80) Hemoglobin 13.4g/dL (13.8-17.2) Hematocrit 40.1% (41.0-50.0) Mean Corpuscular Volume 92.6fL (81-100) Mean Corpuscular Hemoglobin 30.9pg (27.0-35.0) Mean Corpuscular Hemoglobin Concent 33.4% (32.0-37.0) Red Cell Distribution Width 12.6% (12.3-15.4) Platelet Count 180bil/L (150-400) Neutrophils (%) (Auto) 50.4% (40-74) Lymphocytes (%) (Auto) 35.8% (14-46) Monocytes (%) (Auto) 11.6% (4-12) Eosinophils (%) (Auto) 1.6% (0-5) Basophils (%) (Auto) 0.3% (0-3) Sodium Level 143mEq/L (134-144) Potassium Level 4.1mEq/L (3.5-5.2) Chloride Level 106mEq/L (97-108) Carbon Dioxide Level 22mmol/L (18-29) Blood Urea Nitrogen 14mg/dL (8-27) Creatinine 0.84mg/dL (0.76-1.27) Estimat Glomerular Filtration Rate 92mL/min (>59) Glucose Level 106mg/dL (60-99) Hemoglobin A1c 6.0% (4.8-5.6) Calcium Level 9.0mg/dL (8.5-10.1) Magnesium Level 1.9mg/dL (1.6-2.6) Total Bilirubin 0.5mg/dL (0.0-1.2) Aspartate Amino Transf (AST/SGOT) 21U/L (0-50) Alanine Aminotransferase (ALT/SGPT) 13U/L (0-44) Alkaline Phosphatase 77U/L (25-160) Total Protein 6.6g/dL (6.4-8.4) Albumin 3.9g/dL (3.4-5.0) Triglycerides Level 75mg/dL (0-149) Cholesterol Level 159mg/dL (100-199) LDL Cholesterol, Calculated 87.000mg/dL (0-99) VLDL Cholesterol 15.000mg/dL HDL Cholesterol 57mg/dL (>39) Cholesterol/HDL Ratio 2.79 (0.0-4.4) Discharge Medications Discharge Medications Amlodipine (Amlodipine) 5 Mg Tablet 5 MG PO DAILY Prescribed by: HYUN MCKAY MD Aspirin Chew (Aspirin Chew) 81 Mg Chew 81 MG PO DAILY (Reported) Rosuvastatin Calcium (Crestor) 5 Mg Tablet 5 MG PO DAILY (Reported) Followup Plan Disposition: Home Follow-up plan 1. Followup with primary care provider within one week for further consideration of outpatient neurology referral as well as possible further anticoagulation for the history of atrial fibrillation 2. Followup with [facility] (Dr. Keith Hernandez) on Saturday12/19/16 at 10:55 AM Address: [address] [place] [address] Discharge Diet: Low fat, Low Sodium, Heart Healthy Discharge Activity: Home Health Phyical Therapy Patient Instructions Seek immediate medical attention if any new or worsening signs or symptoms occur. Patient and his express clear verbal understanding of noted instructions and recommendations and agree with it. Follow-up Provider: Keith Hernandez MD Follow-up with PCP in: Other (Saturday12/19/16 at 10:55 AM) Provider: Husam Guajardo PA-C Follow-up in: 1 week Time spent 40 min copies to: Husam Guajardo PA-C, Masoud Dec 11, 2016 19:11
== END 2016-12-11 15:26 | disposition home or self-care (01) | DRG 65 ==
LOC: SED 05:52 → EDBD 05:52 → EDUNIT# 05:52 → MPC 13:10
PROVIDERS: ADMIT Internal Medicine; ATTEND Internal Medicine
DX: I63.9 Cerebral infarction, unspecified (principal); R41.4 Neurologic neglect syndrome; I69.354 Hemiplegia and hemiparesis following cerebral infarction affecting left non-dominant side; I10 Essential (primary) hypertension; C31.0 Malignant neoplasm of maxillary sinus; R40.2362 Coma scale, best motor response, obeys commands, at arrival to emergency department; R40.2242 Coma scale, best verbal response, confused conversation, at arrival to emergency department; R40.2142 Coma scale, eyes open, spontaneous, at arrival to emergency department; I69.320 Aphasia following cerebral infarction; Z79.82 Long term (current) use of aspirin; I25.2 Old myocardial infarction; Z72.89 Other problems related to lifestyle; Z87.891 Personal history of nicotine dependence